=== PATIENT | male | born 1950 | race Caucasian/White ===

== ENCOUNTER 2022-08-16 11:05 | Emergency (ER) | payer OTHER ==
[~2022-08-16] VITALS: Ht 170.2 cm; Wt 96.6 kg
== END 2022-08-16 16:27 | disposition home or self-care (01) ==
LOC: ER 11:05
DX: R06.02 Shortness of breath (principal); Z20.822 Contact with and (suspected) exposure to COVID-19; J90 Pleural effusion, not elsewhere classified

== ENCOUNTER 2022-08-20 09:13 | Outpatient (CLI) | payer OTHER | END 2022-08-20 09:20 | disposition home or self-care (01) | LOC: TOM 09:13 | PROVIDERS: ATTEND Emergency Medicine | DX: R06.02 Shortness of breath (principal) ==